=== PATIENT | female | born 1950 | race Caucasian/White ===

== ENCOUNTER 2016-03-13 09:55 | Day surgery (SDC) | payer OTHER ==
[~2016-03-13] VITALS: Ht 154.9 cm; Wt 88.5 kg
--- NOTE | 2016-03-13 12:55 | Operative Note ---
Surgeon/Diagnoses Surgeon/Customer Service Analyst(s) Date of procedure: 03/13/16 Surgeon: MD Shayan Rico Diagnoses Pre-op diagnosis: Inflamed/infected sebaceous cyst along the LEFT occipital scalp Post-op diagnosis Same Procedure Procedure Procedure: Incision and drainage of inflamed/infected cyst along LEFT occipital scalp Indications: KUSHAL HENSON is a 66 year-old Female with a history of enlarging cystic lesion along the LEFT occipital scalp. Over the last 24 hours she has had increasing pain and some drainage. No cellulitis. Findings: Inflamed and possibly infected sebaceous debris removed Procedure Description: After informed consent was obtained, the patient was taken to the operating room and placed in the supine position. Monitored anesthesia care ensued and her scalp was prepped and draped in a sterile fashion. After infiltration with local anesthetic an incision was made overlying the central portion of the lesion. A small amount of purulent fluid was noted. Necrotic sebaceous debris was excised. The wound was irrigated thoroughly and packed open. Dressings were applied and the patient was transferred to recovery in stable condition. EBL (ml): 5 Anesthesia: Monitored anesthesia care/local Complications: No immediate Specimens: Necrotic sebaceous debris excised (not sent for pathologic evaluation) Disposition Disposition: Stable to recovery from where she will be discharged home. She will begin twice- daily dressing changes tomorrow. She will follow-up in one week. at 1960
[2016-03-13 14:23] VITALS: BP 122/81
== END 2016-03-13 13:40 | disposition home or self-care (01) ==
LOC: SDC 09:55
PROVIDERS: Surgery
PROC: 0H90XZZ Drainage of Scalp Skin, External Approach (ICD-10-PCS; principal; 2016-03-13 11:15)
DX: L72.3 Sebaceous cyst (principal); L08.89 Other specified local infections of the skin and subcutaneous tissue